=== PATIENT | female | born 1980 | race Asian ===

== ENCOUNTER 2018-03-31 20:51 | Emergency (ER) | payer BC, OTHER ==
[~2018-03-31 20:51] MED LIST: IBUP-2077 PO; PREN1TAB80 PO
== END 2018-03-31 21:40 | disposition home or self-care (01) ==
LOC: EDH 20:51
DX: S80.01XA Contusion of right knee, initial encounter (principal); S09.8XXA Other specified injuries of head, initial encounter; E78.5 Hyperlipidemia, unspecified; Y04.0XXA Assault by unarmed brawl or fight, initial encounter; Y93.89 Activity, other specified; Y92.238 Other place in hospital as the place of occurrence of the external cause; Y99.8 Other external cause status
CPT/HCPCS: 73562